=== PATIENT | female | born 1955 | race Hispanic/Latino ===

== ENCOUNTER 2020-10-06 17:50 | Emergency (ER) | payer OTHER ==
[~2020-10-06] VITALS: Ht 154.9 cm; Wt 68.9 kg
[2020-10-06] MEDS ORDERED: ACETAMINOPHEN 325 MG TAB ONE (19:28)
[2020-10-06] MEDS ORDERED: ACETAMINOPHEN 325 MG TAB PO ONE (19:30)
== END 2020-10-06 20:00 | disposition home or self-care (01) ==
LOC: ER 19:19
DX: U07.1 COVID-19 (principal)

== ENCOUNTER 2020-10-09 16:25 | Emergency (ER) | payer OTHER ==
[~2020-10-09] VITALS: Ht 154.9 cm; Wt 68.9 kg
== END 2020-10-09 20:34 | disposition home or self-care (01) ==
LOC: ER 16:50
DX: U07.1 COVID-19 (principal)
CPT/HCPCS: 99281